=== PATIENT | male | born 1950 | race Caucasian/White ===

== ENCOUNTER 2018-06-12 16:25 | Inpatient (IN) | payer MEDICARE, MEDICAID ==
[~2018-06-12] VITALS: Ht 177.8 cm; Wt 111.6 kg
--- NOTE | ~2018-06-12 | DS ---
[place], [place] DISCHARGE SUMMARY [id number] #: [id number] ROOM: 310 DOCTOR: BILL BELL MD BIRTHDATE: [birth year] DOS: 06/16/2018 CHIEF COMPLAINT: "I can't stop these crying spells." HISTORY OF PRESENT ILLNESS: This is a 67-year-old white male who is a resident of [facility] in [place], [place]. The patient was to be admitted here to the U, but was needed to be medically cleared through the Emergency Room. When in the Emergency Room, they found him to have a UTI as well as an episode of SVT. He was subsequently admitted medically. While on the medical floor, he was still found to be very disjointed and fragmented with flight of ideas and extreme mood lability. He would cry 1 minute and laugh the next for apparently no reason. This bothered him to the point where he was feeling increasingly depressed and irritable. He was admitted to the U to rule out further organic factors and to attempt to stabilize on medication. SUMMARY OF HOSPITAL COURSE: The patient was admitted to the unit where his Aricept was discontinued in lieu of Exelon patch, which was started at 4.6 mg a day and brought up to 9.5 during his stay. This was augmented with Namenda 5 mg a day and further adjustment will be made when he returns back to [facility]. He was diagnosed with pseudobulbar affect. Due to the severity and inappropriateness of his emotionality, Nuedexta 20-10 once a day was started and then increased to twice a day with remarkable improvement. The mood lability and symptoms that were so problematic and were bothering him greatly dissipated. He was also given Depakote 500 mg 3 times a day. Because of some of the mood lability, his improvement with his moods was so substantial that he was able to be discharged back to [facility] on 06/16/2018. MENTAL STATUS AT DISCHARGE: The patient is alert and oriented with time gaps. Mood does seem to be strongly trending towards euthymia. Affect is much more appropriate. There is no maday or hypomania. There were no voice psychotic symptoms. Short-term memory had gaps, otherwise he is intact. DIAGNOSES UPON DISCHARGE: Intermittent explosive disorder, pseudobulbar affect. PLAN: All of his prescriptions have been printed and will be sent with him. I will be the treating psychiatrist upon his readmission to [facility] in [place]. At the time of discharge, he was psychiatrically stable. Of note as his RPR did come back positive, I will order an FTA antibody here and pass it on to follow up once he is returning to [facility]. [place], [place] DISCHARGE SUMMARY NAME: FELIPE CASTANEDA UNIT #: [id number] ROOM: 310 DOCTOR: BILL BELL MD BIRTHDATE: [birth year] BILL BELL MD CM:DISCHARG [phone] BILL BELL MD 06/16/18 1245 interface
--- NOTE | ~2018-06-12 | WRIGHTHP ---
[place], [place] PATIENT HISTORY AND PHYSICAL EXAM [id number] #: [id number] ROOM: 310 DOCTOR: BILL BELL MD BIRTHDATE: [birth year] DOS: 06/13/2018 INITIAL PSYCHIATRIC EVALUATION CHIEF COMPLAINT: "I can't stop these crying spells." HISTORY OF PRESENT ILLNESS: This is a 67-year-old white male, who is a resident of [facility] in [place], [place]. The patient was to be admitted here to the [facility] but when he was medically cleared through the Emergency Room, he was found to have a UTI and an episode of SVT, so he was admitted medically. While on the medical floor, he was still found to be very disjointed and fragmented with flight of ideas and extreme mood lability. He would cry 1 minute and laugh the next for no apparent reason. This bothered him to the point where he did report feeling increasingly depressed and irritable. He is admitted now to rule out further organic factors, to stabilize on medication, to engage in individual and mcfadden milieu activity, returning to the least restrictive environment when psychiatrically stable. PAST MEDICAL HISTORY: Remarkable for gait disturbance, Alzheimer's dementia, benign prostatic hyperplasia, hyperlipidemia, GERD, hypertension, obesity, atrial fibrillation, CVA, supraventricular tachycardia, diabetes, vitamin B12 deficiency. SOCIAL HISTORY: He is a former cigarette smoker. He does not drink alcohol or use illicit drugs. ALLERGIES: He lists allergies to ASPIRIN. STRENGTHS: Good verbal skills. WEAKNESSES: Cognitive decline, poor coping skills. MENTAL STATUS: He is alert and oriented with time gaps. Mood does seem to be uncontrollable. In the midst of me talking to him about relatively benign things, he burst into crying and could not stop. You can tell, he was distressed by the crying itself not distressed during the crying episode. This seemed totally out of his control. He nodded in approval when I said that this was what was happening. This has been bothersome and ongoing for some time now. There was no agitation or aggression. There were no overt auditory or visual hallucinations. No delusions, no paranoia. Short term memory does have gaps. DIAGNOSES: Intermittent explosive disorder, pseudobulbar affect. Rule out major depression, recurrent. PLAN: I am in the process and I will now discontinue the Aricept in lieu of Exelon as a better agent to treat his cognitive issues and improve ADL maintenance and behaviors. I will increase the Exelon patch to 9.5 mg a day. I have already started him on Nuedexta 20-10 once a day and I will increase this to twice a day. Vitamin D level is low at 25.6. However, we will augment with vitamin D 5000 International Units daily. His ammonia level is elevated, but I [place], [place] PATIENT HISTORY AND PHYSICAL EXAM NAME: FELIPE CASTANEDA UNIT #: [id number] ROOM: 310 DOCTOR: BILL BELL MD BIRTHDATE: [birth year] will recheck this later today to make certain that this is not a lab artifact. We will engage in individual and mcfadden milieu activity, returning to the least restrictive environment when psychiatrically stable. BILL BELL MD CM:HISPHYS:PATIENT HISTORY AND PHYSICAL EXAMINATION [phone] BILL BELL MD 06/13/18 1217 interface
--- NOTE | ~2018-06-12 | PR ---
[place], [place] PROGRESS NOTE [id number] #: [id number] ROOM: 310 DOCTOR: BILL BELL MD BIRTHDATE: [birth year] DOS: 06/14/2018 INTERVAL NOTE CHIEF COMPLAINT: "I think I'm better already, thank you doctor, thank you doctor." SUMMARY OF THE VISIT: The patient was interviewed as he was sitting, eating his breakfast. As I approached, he engaged in very spontaneous conversation. He commented on my shirt and the fact that it said [place] on it and we talked about people he had known who had gone to the [place] or to warm environments. During the entire conversation, he did not break down once and as we finished the conversation, he very quickly thanked me because he feels that his inappropriate excessive crying has already started to come under control. He does report tolerating the current medication regimen well and is hopeful that as he improves, he will be able to return back to [facility] in [place], [place]. MENTAL STATUS: He is alert and oriented with some mild time gaps. Mood does seem to be strongly trending towards euthymia. Affect is much more appropriate. There is no symptom suggestive of hypomania or maday and there are no gross psychotic symptoms. Short-term memory has only mild gaps, otherwise he is relatively fully intact. PLAN: I will recheck his valproic acid level in the morning tomorrow. The last level was mildly low at 45.2. I will continue his current psychotropic regimen, continue to engage in individual and mcfadden milieu activity with the ultimate plan to return to the least restrictive environment when psychiatrically stable. BILL BELL MD CM:PNTRANS [phone] BILL BELL MD 06/14/1806 interface
--- NOTE | ~2018-06-12 | PR ---
[place], [place] PROGRESS NOTE NAME: [id number] UN[facility] #: [id number] ROOM: 310 DOCTOR: BILL BELL MD BIRTHDATE: [birth year] DOS: 06/15/2018 INTERVAL NOTE CHIEF COMPLAINT: "I am feeling so much better. Thank you so much." SUMMARY OF THE VISIT: The patient was interviewed as he was wheeling up and down the hallway. He stopped and engaged readily in conversation, reporting that the episodes of this spontaneous emotionality have dissipated almost completely. He reports feeling so much better. He is sleeping better, eating better, and is much more positive about life and is anxious to return back to [place]. He convincingly denies medication side effects. MENTAL STATUS: He is alert and oriented to person, place and very approximate to time. Mood is strongly trending towards euthymia. Affect is much more appropriate. There is no maday or hypomania. There is no gross psychosis. Short term memory has only mild gaps, otherwise, he is fully intact. PLAN: His valproic acid level was therapeutic at 65.1, so I will maintain his current regimen. Maintain Nuedexta 20-10 b.i.d. Engage in individual and mcfadden milieu activity, returning then to the least restrictive environment when psychiatrically stable. BILL BELL MD CM:PNTRANS [phone] BILL BELL MD 06/15/18 1013 interface
[~2018-06-12 16:25] MED LIST: ARICEPT10 M1 PO; B12,B-12,B 12500 MC1 PO; CENTRUM SILVER1 EAC3 PO; DEPAKOTE DR500 MG PO; FINASTERIDE5 M1 PO; GUAIFENESIN600 MG PO; LOPRESSOR100 M1 PO; MELATONIN5 M6 PO; Meclizine25 MG PO; NORVASC10 MG PO; OMEPRAZOLE40 MG PO; TAMSULOSIN HCL0.4 MG PO; ZESTORETIC 20-1 EACH PO
[2018-06-12] MEDS ORDERED: RESTORIL15 MG PO (16:48)
[2018-06-12] MEDS ORDERED: METOPROLOL SUC100 M1 PO (17:04)
[2018-06-12 17:49] VITALS: BP 141/89
[2018-06-12 18:17] VITALS: BP 141/89
--- NOTE | 2018-06-12 18:31 | NUR ---
SPOKE WITH DR.A CROSS ADVISED OF MEDICAL MANAGEMENT CONSULT NEEDED, PER DR. TAY BOCANEGRA THE CONSULT UNDER . NO FURTHER ORDERS AT THIS TIME
--- NOTE | 2018-06-12 18:32 | NUR ---
FELIPE CASTANEDA a 67 year old M admitted via WHEELCHAIR from THE 5TH FLOOR as a voluntary BY POA admission. Arrived on unit at 1740 . ALLERGIES: ASPIRIN . Vital signs are: [id number] 141/89. The client signed the following forms with stated understanding: Authorization For The Release of Medical Information, Clothing List, Consent to Voluntary Admission and Hospitalization, Consent and Release Forms/Receipt of Rights, Acknowledgement of Advance Directive Information, Behavioral Health Consent Form, and Informed Consent of Medications. Admitted under the services of Dr. ARABELLA LEGER,[facility]. A search was conducted and hazardous articles were removed. Client was oriented to the unit. LUCIA ZURITA
--- NOTE | 2018-06-12 18:34 | NUR ---
SPOKE WITH ZIA MA AYT [phone] RE:PT ADMISSION AND VOLUNTARY BY POA STATUS.
[2018-06-12 19:48] VITALS: BP 141/89
--- NOTE | 2018-06-12 22:05 | NUR ---
P--AGGRESSION, DEPRESSION, MOOD SWINGS I---DISCUSSED HIS PAST HISTORY, REVIEWED MEDICATION, REINFORCED SUPPORT SYSTEM R--I HAVE HAD SUCH A BLESSED LIFE, I GET DEPRESSED WHEN I THINK ABOUT MY STROKE AND HOW IT CHANGED THINGS. I CAN'T WAIT TO TAKE MY DAUGHTER AND HER GIRLFRIEND TO [place]. I REALLY TRY TO BE NICE TO PEOPLE, THERE IS NO REASON TO BE MEAN. CAN I HAVE A SHOWER TONIGHT P--CLIENTS MOOD CHANGED QUICKLY FROM LAUGHING TO CRYING. CLIENT EAGER TO TALK AND STAFF WILL BE READILY AVAILABLE TO TALK AT ANY TIME
--- NOTE | 2018-06-12 22:55 | NUR ---
IMODIUM GIVEN PER ORDERS FOR MULTIPLE LIQUID STOOLS
--- NOTE | 2018-06-13 02:48 | NUR ---
24 HR chart check completed.
--- NOTE | 2018-06-13 05:49 | NUR ---
SLEPT BETTER AFTER DISRUPTIVE ROOMMATE REMOVED FROM ROOM SLET 5 BROKEN HOURS
[2018-06-13 06:53] LABS: BASO # 0.1 10*3/uL (0.0-0.1); BASO % 0.6 % (0.0-1.0); EOS # 0.2 10*3/uL (0.0-0.4); EOS % 2.4 % (1.0-4.0); HEMOGLOBIN 13.8 g/dl (14.0-18.0); LYMPH # 1.9 10*3/uL (1.3-4.4); LYMPH % 19.3 % (27.0-41.0); MEAN CELL VOLUME 89.8 fl (80.0-94.0); MEAN CORPUSCULAR HGB 28.2 pg (27.0-31.0); MEAN CORPUSCULAR HGB CONC 31.4 g/dl (33.0-37.0); MONO # 0.9 10*3/uL (0.1-1.0); MONO % 8.8 % (3.0-9.0); NEUT # 6.5 10*3/uL (2.3-7.9); NEUT % 67.7 % (47.0-73.0); PLATELET COUNT AUTOMATED 282 10*3/uL (130-400); RED CELL DISTRI WIDTH 14.6 % (0-14.5); WHITE BLOOD COUNT 9.6 10*3/uL (4.8-10.8)
[2018-06-13 07:05] LABS: ALBUMIN 3.1 gm/dl (3.1-4.5); ALKALINE PHOSPHATASE 63 U/L (45-117); BUN 17 mg/dl (7-24); CHLORIDE 105 mmol/L (98-107); CHOLESTEROL 175 mg/dL (<200); CREATININE 1.23 mg/dL (0.70-1.30); HDL CHOLESTEROL 32 mg/dl (40-60); LDL CHOLESTEROL 113 mg/dL (9-159); POTASSIUM 3.8 mmol/L (3.5-5.1); SGOT/AST 56 IU/L (3-35); SGPT/ALT 51 U/L (12-78); SODIUM 140 mmol/L (136-145); TOTAL PROTEIN 8.5 gm/dL (6.4-8.2); TRIGLYCERIDES 149 mg/dl (<150); VALPROIC ACID (DEPAKENE) 45.2 ug/ml (50-100); VLDL CHOLESTEROL 30 mg/dL (6-40)
[2018-06-13 07:51] LABS: VITAMIN D, 25-HYDROXY 25.6 ng/mL (30-100)
--- NOTE | 2018-06-13 07:53 | NUR ---
PT AWAKE, ALERT AND VERBAL, EATING BREAKFAST IN DINING ROOM WITH PEERS.
--- NOTE | 2018-06-13 08:00 | NUR ---
Treatment Plan meeting with Dr. Aidan RN and Landscape Architect And Planner. Plan for discharge next week. Pt. is LTC at [facility] and will return at discharge.
--- NOTE | 2018-06-13 08:00 | NUR ---
ON UNIT TO SEE PT THIS AM, UPDATE GIVEN.
[2018-06-13 08:41] VITALS: BP 149/85
--- NOTE | 2018-06-13 10:00 | NUR ---
Spoke with Antonietta [place] at facility and advised of plans to discharge patient next week. Clinical Updates faxed to [facility]. Attn: Antonietta.
--- NOTE | 2018-06-13 10:09 | NUR ---
psychosocal hx completed today
--- NOTE | 2018-06-13 11:00 | NUR ---
AND ON UNIT TO SEE PT.
--- NOTE | 2018-06-13 11:45 | NUR ---
Update Level 2 PASRR received. Pt is Ruled out and may return to Nursing Facility at discharge.
--- NOTE | 2018-06-13 13:14 | NUR ---
CALL PLACED TO [facility] TO CLARIFY VISITATION/PHONE CALL RESTRICTION. PER POA THERE ARE NO RESTRICTIONS ON WHO CAN CALL OR VISIT. INFORMATION REGARDING TREATMENT MAY BE RELEASED TO: [facility], SARI CASTANEDA AND DAVIN TENORIO. UPDATE GIVEN TO [facility].
--- NOTE | 2018-06-13 13:53 | NUR ---
PHYSICAL THERAPY Patient evaluated on 3, full evaluation to follow. Continue with PT as per plan of care with fall, unit three, knees buckle, mod (A) x 2 and acute debility precautions. Will require SNF. PAtient is high complexity via chart review, tests and evaluation: 90007. Thank you for this referral. Alisa Pierce,PT
--- NOTE | 2018-06-13 14:14 | NUR ---
P- LABILE MOOD, EPISODES OF INAPPROPRIATE LAUGHTER AND CRYING NOTED WHICH PT STATES ARE INVOLUNTARY. I- ORIENTATION, MOOD AND BEHAVIOR ASSESSED. ASSESSED PT FOR SI/HI, INTENT OR PLAN. ASSESSED PT FOR S/S HALLLUCINATIONS, PARANOIA AND/OR DELUSIONS. MEDICATIONS ADMINISTERED PER PHYSICIAN'S ORDERS. ASSISTANCE WITH ADL CARE PROVIDED NEEDED. ENCOURAGED PT TO ATTEND AND PARTICIPATE IN [facility] GROUPS AND ACTIVITIES. R- PT IS ALERT AND ORIENTED TO PERSON, PLACE, TIME AND SITUATION. RESPS EASY AND EVEN ON ROOM AIR. MOOD IS LABILE, AFFECT INAPPROPRIATE AT TIMES PT HAS PERIODS OF INAPPROPRIATE LAUGHTER AND CRYING WHICH PT STATES ARE INVOLUNTARY. PT STATES "I HAVE SOMETHING, I THINK IT'S CALL PSUEDO-BULB FROM MY STROKE". EDUCATION PROVIDED REGARDING PSEUDOBULBULAR AFFECT AND NEW MEDICATION NEUDEXTA PRESCRIBED BY TO ASSIST IN MANAGING THESE OUTBURSTS. PT VERBALIZED UNDERSTANDING. POA AWARE WELL AND VERBALIZED UNDERSTANDING AND AGREEMENT. PT DENIES SI/HI, INTENT OR PLAN. PT DENIES HALLUCINATIONS, NO RESPONSE TO INTERNAL STIMULI NOTED. NO PARANOIA OR DELUSIONS NOTED. PT IS CALM, PLEASANT AND COOPERATIVE. MEDICATION COMPLIANT WITHOUT DIFFICULTY. 1 ASSIST PROVIDED FOR ADL CARE. PT CONTINENT OF BOWEL AND BLADDER. P- PLAN TO CONTINUE CURRENT TREATMENT; CONTINUE TO MONITOR MOOD AND BEHAVIORS. PROVIDE APPROPRIATE REORIENTATION, REDIRECTION AND 1:1 NEEDED. CONTINUE TO ENCOURAGE MEDICATION COMPLIANCE WELL GROUP ATTENDANCE AND PARTICIPATION.
--- NOTE | 2018-06-13 15:21 | NUR ---
Messi was evaluated on behavioral health this date by occupational therapy. His affect was pleasant and less labile this date. Messi has decreased balance, decreased endurance, decreased strength, decreased coordination, and decreased sensation that limits his ability to complete ADL's and functional transfers independently. SNF is recommended when patient is D/C with continued occupational therapy. Jessica Adams OTR/L
[2018-06-13 20:00] VITALS: BP 113/74
--- NOTE | 2018-06-14 03:21 | NUR ---
TYLENOL GIVEN FOR C/O 5/10 HEADACHE.
--- NOTE | 2018-06-14 05:26 | NUR ---
APPEARS TYLENOL EFFECTIVE. 24 HR chart check completed.
--- NOTE | 2018-06-14 06:12 | NUR ---
SLEPT POOR LAST NIGHT. APPROX 3.5 HOURS BROKEN SLEEP. EVERY ALARM OR SOUND SEEMS TO HAVE AWAKENED HIM AND HE WOULD THEN CALL OUT. COMPLETE SHOWER WITH SHAVE, AND ORAL CARE.
[2018-06-14 08:29] VITALS: BP 130/77
--- NOTE | 2018-06-14 10:00 | NUR ---
ON UNIT TO SEE PT AT THIS TIME.
--- NOTE | 2018-06-14 11:46 | NUR ---
AM GROUP/EXERCISES/BINGO PT ATTENDED AND PARTICIPATEX DURING GROUP. PT TEARFUL WHNE TALKING ABOUT SOME PAST EXPERIENCES, PT EASILY DIRECTED BACK TO ACTIVITY. PT WILL CONTINUE TO ATTEND AND PARTICIPATE TO BEST OF ABILITY.
--- NOTE | 2018-06-14 16:07 | NUR ---
SPOKE TO PT'S MARIVEL GHOTRA, UPDATE GIVEN.
--- NOTE | 2018-06-14 16:09 | NUR ---
P- MOOD APPEARS STABLE WITH BROAD RANGE AFFECT. PT REPORTS HE IS FEELING BETTER AND HAS NOTICED A DECREASE IN THE FREQUENCY OF INAPPROPRIATE OUTBURSTS OF LAUGHTER/CRYING. I- ORIENTATION, MOOD AND BEHAVIOR ASSESSED. ASSESSED PT FOR SI/HI, INTENT OR PLAN. ASSESSED PT FOR S/S HALLLUCINATIONS, PARANOIA AND/OR DELUSIONS. MEDICATIONS ADMINISTERED PER PHYSICIAN'S ORDERS. ASSISTANCE WITH ADL CARE PROVIDED NEEDED. ENCOURAGED PT TO ATTEND AND PARTICIPATE IN [employer] GROUPS AND ACTIVITIES. R- PT IS ALERT AND ORIENTED TO PERSON, PLACE, TIME AND SITUATION. RESPS EASY AND EVEN ON ROOM AIR. MOOD APPEARS STABLE WITH BROAD RANGE AFFECT. PT STATES HE IS FEELING BETTER AND STATES HE HAS NOTICED HE IS EXPERIENCING FEWER OUTBURTS OF INAPPROPRIATE LAUGHTER AND/OR CRYING. PT DENIES SI/HI, INTENT OR PLAN. PT DENIES HALLUCINATIONS, NO RESPONSE TO INTERNAL STIMULI NOTED. NO PARANOIA OR DELUSIONS NOTED. PT IS CALM, PLEASANT AND COOPERATIVE. MEDICATION COMPLIANT WITHOUT DIFFICULTY. 1 ASSIST PROVIDED FOR ADL CARE. PT CONTINENT OF BOWEL AND BLADDER. P- PLAN TO CONTINUE CURRENT TREATMENT; CONTINUE TO MONITOR MOOD AND BEHAVIORS. PROVIDE APPROPRIATE REORIENTATION, REDIRECTION AND 1:1 NEEDED. CONTINUE TO ENCOURAGE MEDICATION COMPLIANCE WELL GROUP ATTENDANCE AND PARTICIPATION.
[2018-06-14 20:00] VITALS: BP 142/85
--- NOTE | 2018-06-14 23:42 | NUR ---
A&O X4. STABLE MOOD. NO ADVERSE MOODS OR BEHAVIORS NOTED. ORGANIZED AND GOAL DIRECTED. CALM/PARTICIPATING. INTERACTIVE WITH STAFF AND PEERS. NO HALLUCINATIONS OR DELUSIONS NOTED. NO SI/HI NOTED. PRN ROZEREM GIVEN FOR INSOMNIA AND EFFECTIVE AT THIS TIME. MEDICATION COMPLIANT WITHOUT DIFFICULTY. PLAN IS TO CONTINUE TO ENCOURAGE MEDICATION COMPLIANCE AND CONTINUE TO ENCOURAGE PT TO REMAIN INTERACTIVE WITH PEERS AND STAFF. SEE [facility] FLOWSHEET FOR SPECIFIC MONITORING.
--- NOTE | 2018-06-15 05:18 | NUR ---
24 HR chart check completed.
--- NOTE | 2018-06-15 05:21 | NUR ---
PT SLEPT APPROXIMATELY 7 HOURS THIS SHIFT. Q15 MINUTE SAFETY CHECKS MAINTAINED.
[2018-06-15 07:37] VITALS: BP 145/81
--- NOTE | 2018-06-15 07:38 | NUR ---
PT AWAKE, ALERT AND VERBAL, PLEASANT, AWAITING BREAKFAST IN DINING ROOM WITH PEERS.
--- NOTE | 2018-06-15 08:00 | NUR ---
ON UNIT TO SEE PT AT THIS TIME, UPDATE GIVEN.
--- NOTE | 2018-06-15 10:21 | NUR ---
ON UNIT TO SEE PT AT THIS TIME.
--- NOTE | 2018-06-15 11:43 | NUR ---
P- MOOD APPEARS STABLE WITH BROAD RANGE AFFECT. PT REPORTS HE IS FEELING BETTER AND IS LOOKING FORWARD TO BEING DISCHARGED. LESS FREQUENT OUTBURSTS OF INAPPROPRIATE CRYING AND LAUGHING NOTED BY STAFF. I- ORIENTATION, MOOD AND BEHAVIOR ASSESSED. ASSESSED PT FOR SI/HI, INTENT OR PLAN. ASSESSED PT FOR S/S HALLLUCINATIONS, PARANOIA AND/OR DELUSIONS. MEDICATIONS ADMINISTERED PER PHYSICIAN'S ORDERS. ASSISTANCE WITH ADL CARE PROVIDED NEEDED. ENCOURAGED PT TO ATTEND AND PARTICIPATE IN [employer] GROUPS AND ACTIVITIES. R- PT IS ALERT AND ORIENTED TO PERSON, PLACE, TIME AND SITUATION. RESPS EASY AND EVEN ON ROOM AIR. MOOD APPEARS STABLE WITH BROAD RANGE AFFECT. SPEECH IS WNL AND COHERENT, ABLE TO MAKE NEEDS KNOWN WITHOUT DIFFICULTY. PT STATES HE IS FEELING BETTER. LESS FREQUENT OUTBURSTS OF INAPPROPRIATE LAUGHING AND CRYING NOTED BY STAFF. PT STATES HE HAS NOTICED THESE OUTBURTS GETTING BETTER AND HE IS READY TO GO BACK HOME SOON. PT DENIES SI/HI, INTENT OR PLAN. PT DENIES HALLUCINATIONS, NO RESPONSE TO INTERNAL STIMULI NOTED. NO PARANOIA OR DELUSIONS NOTED. PT IS CALM, PLEASANT AND COOPERATIVE. POSITIVE INTERACTIONS NOTED WITH BOTH STAFF AND PEERS. PT IS MEDICATION COMPLIANT WITHOUT DIFFICULTY. 1 ASSIST PROVIDED FOR ADL CARE, PT SHOWERED AND SHAVED THIS MORNING WITH STAFF ASSIST X1. PT CONTINENT OF BOWEL AND BLADDER. P- PLAN TO CONTINUE CURRENT TREATMENT; CONTINUE TO MONITOR MOOD AND BEHAVIORS. PROVIDE APPROPRIATE REORIENTATION, REDIRECTION AND 1:1 NEEDED. CONTINUE TO ENCOURAGE MEDICATION COMPLIANCE WELL GROUP ATTENDANCE AND PARTICIPATION.
--- NOTE | 2018-06-15 14:50 | NUR ---
SHIFT CHART CHECK COMPLETED.
--- NOTE | 2018-06-15 16:02 | NUR ---
PM GROUP/EXERCISES/MOVIE PT ATTENDED AND PARTICIPATED DURING GROUP. PT ON TASK AND TALKATIVE WITH PEERS. PT DID BECOME AGITATED BY ANOTHER PT TALKING TOO MUCH DURING GROUP WHILE WATCHING A MOVIE. PT STATED "JUST BE QUIET". THIS STAFF REMOVED DISTRACTING PEER AND PT BACK ON TRACK. PT WILL CONTINUE TO ATTEND AND PRATICIPATE IN FUTURE GROUP SESSIONS.
[2018-06-15 20:00] VITALS: BP 144/79
--- NOTE | 2018-06-15 21:30 | NUR ---
A&O X4. STABLE MOOD. NO ADVERSE MOODS OR BEHAVIORS NOTED. ORGANIZED AND GOAL DIRECTED. CALM/PARTICIPATING. INTERACTIVE WITH STAFF AND PEERS. NO HALLUCINATIONS OR DELUSIONS NOTED. NO SI/HI NOTED. PRN ROZEREM GIVEN FOR INSOMNIA. MEDICATION COMPLIANT WITHOUT DIFFICULTY. PLAN IS TO CONTINUE TO ENCOURAGE MEDICATION COMPLIANCE AND CONTINUE TO ENCOURAGE PT TO REMAIN INTERACTIVE WITH PEERS AND STAFF. SEE [facility] FLOWSHEET FOR SPECIFIC MONITORING.
--- NOTE | 2018-06-16 05:30 | NUR ---
PT SLEPT APPROXIMATELY 7 HOURS THIS SHIFT.
--- NOTE | 2018-06-16 05:32 | NUR ---
24 HR chart check completed.
[2018-06-16 07:24] VITALS: BP 139/67
--- NOTE | 2018-06-16 07:25 | NUR ---
OT NOTE Pt was seen this A.M. 1:1 for 25 minute OT session with PAROLE DIRECTOR and nursing present for observation only. Upon arrival pt was sitting upright in w/c in the dining room and identified by name and . Pt had no complaints at this time. Requested for pt to soheila his sock while sitting in w/c and pt had inital attempt of bending at the waist, resulting in modA due to F- sitting balance. Educated pt on compensatory technique of bringing his leg over his knee and pt was able to then soheila socks with SBA. Pt was taken into his bedroom where he completed sit to stand from chair level with modA and use of w/w for UE support. Funtional mobility completed into the bathroom with Tova and use of w/w. There pt stood sink side while washing his hands and face with Tova while staniding without UE support and CGA while standing with UE support. Pt was able to tolerate aprox 4 minutes before sitting due to fatigue and L knee buckle. Pt completed LUE towel exercises over all planes of motion for 1 X 10 to increase UE strength needed for increased I in self care tasks and functional transfers. Throughout session pt had one episode of labile affect. Pt was left sitting upright in the w/c with body alarm on for safety in the dining room under [facility] staff supervision. Continue with POC as able. DIGNA Quiñonez/Robb
--- NOTE | 2018-06-16 07:52 | NUR ---
PHYSICAL THERAPY informed consent given, pt identified by name and . pt presented sitting in w/c, STS and stand to sit x2 CGA. Walked 20ft FWW Tova step to gait pattern w/c follow, pt presented L knee buckle, edu to lock knee out, and to push weight w/ BUE through FWW to avoid knee buckle. During walk, pt c/o lightheadedness, edu to reorient self before walking to avoid fall. Seated BLE ther ex manual resistance x10:LAQ, hip ABD, marches, toe ups. Ended treatment pt sitting in w/c, chair, body alarm on, in activity room. SAWYER present for observation only throughout treatment, treatment time 24min. Will continue per POC to improve functional mobility. Zane Reese, NAMED ACCOUNT EXECUTIVE
--- NOTE | 2018-06-16 08:37 | NUR ---
SPOKE WITH DR. SIMPSON AT [phone] RE:PT DISCHARGE FOR TODAY.
--- NOTE | 2018-06-16 08:43 | NUR ---
LAB CALLED, ADVISED THAT PT HAS A POSITIVE REACTIVE RPR. WILL NOTIFY
--- NOTE | 2018-06-16 08:45 | NUR ---
ADVISED DR. CONNELLY AT [phone] RE; PT POSITIVE RPR. NO FURTHER ORDERS AT THIS TIME.
[2018-06-16] MEDS ORDERED: RIVASTIGMINE1 EAC1 T (08:46)
[2018-06-16] MEDS ORDERED: DIVALPROEX SOD125 M1 PO (08:46)
[2018-06-16] MEDS ORDERED: NEUDEXT PO (08:46)
[2018-06-16] MEDS ORDERED: ROZEREM8 MG PO (08:46)
[2018-06-16] MEDS ORDERED: NAMENDA-5 PO (08:46)
--- NOTE | 2018-06-16 09:43 | NUR ---
Treatment Plan meeting with Dr. Bermudez, RN, AT, and [facility]. Plan for discharge today. Pt. to return to [facility]. Notified Antonietta [place] admissions at [facility] and also spoke with SREEKANTH Arcos and notified of plans to discharge today.
--- NOTE | 2018-06-16 10:40 | NUR ---
PT ALERT TO PERSON, PLACE, TIME AND SITUATION. PT MED COMPLIANT WITHOUT DIFFIULTY, MED EDUCATION PROVIDED. PT CALM, MOOD IS STABLE. PT GOAL DIRECTED TOWARDS DISCHARGE. NO HALLUCINATIONS OR DELUSIONS NOTED. PT DENIES ANY SUICIDAL/HOMICIDAL THOUGHTS. PT UP TO WHEELCHAIR D/T UNSTEADY GAIT AND INABILITY TO AMBULATE INDEPENDENTLYT, REQUIRES 1X STAFF ASSIST FOR TRANSFERS. PT CONTINENT OF BOWEL AND BLADDER, WITH EPISODES OF INCONTINENCE NOTED, CARE PROVIDED NEEDED. PLAN IS TO PREPARE FOR DISCHARGE LATER TODAY VIA [facility].
--- NOTE | 2018-06-16 11:33 | NUR ---
AM GROUP/EXERCISE AND [place] [employer] PT ATTENDED AND PARTICIPATED LIMITEDLY IN GROUP. PT DID A FEW OF THE EXERCISES AND WORKED ON EGGS BUT WOULD DOZE OFF OCCASIONALLY. PT WOULD SING ALONG WITH THE MUSIC ALSO. PT IS SET TO BE DISCHARGED FROM THE UNIT TODAY.
--- NOTE | 2018-06-16 11:37 | NUR ---
ON UNIT TO ASSESS PT.
--- NOTE | 2018-06-16 13:30 | NUR ---
UPDATED PT POA ON POSITIVE RPR AND PT BEING SENT BACK TO NURSING FACILITY WITH PRESCRIPTION.
--- NOTE | 2018-06-16 13:34 | NUR ---
NURSE TO NURSE REPORT GIVEN TO DANNY AT [facility] [place]
--- NOTE | 2018-06-16 15:17 | NUR ---
PT DISCAHRGED TO [place] VIA [facility].
--- NOTE | 2018-06-17 07:35 | NUR ---
PHYSICAL THERAPY CO-SIGN I approve of the Phyical Therapy notes written above. CHRIS ODEN PT
--- NOTE | 2018-06-17 08:02 | NUR ---
OCCUPATIONAL THERAPY CO-SIGN I approve of the Occupational Therapy notes written above. DEBORAH RUIZ OTR/[facility]
--- NOTE | 2018-06-17 18:17 | NUR ---
WYATT FROM [facility] – [place] CALLED RE: PT LABS FROM YESTERDAY, THIS NURSE ADVISUED THAT PT LABS ARE STILL PENDING.
--- NOTE | 2018-07-11 09:30 | NUR ---
LAB RESULTS PROVIDED TO EANREST HOWELL.
== END 2018-06-16 15:20 | disposition other institution (70) | DRG 883 ==
LOC: 3N 16:25
PROVIDERS: ADMIT Psychiatry & Neurology Psychiatry
DX: F63.81 Intermittent explosive disorder (principal); F02.81 Dementia in other diseases classified elsewhere, unspecified severity, with behavioral disturbance; G30.9 Alzheimer's disease, unspecified; R26.2 Difficulty in walking, not elsewhere classified; F48.2 Pseudobulbar affect; N40.0 Benign prostatic hyperplasia without lower urinary tract symptoms; F39 Unspecified mood [affective] disorder; I10 Essential (primary) hypertension; K21.9 Gastro-esophageal reflux disease without esophagitis; E53.8 Deficiency of other specified B group vitamins; I48.0 Paroxysmal atrial fibrillation; E66.01 Morbid (severe) obesity due to excess calories; E11.9 Type 2 diabetes mellitus without complications; Z88.6 Allergy status to analgesic agent; Z86.73 Personal history of transient ischemic attack (TIA), and cerebral infarction without residual deficits; Z87.440 Personal history of urinary (tract) infections; I25.2 Old myocardial infarction; Z87.891 Personal history of nicotine dependence; Z82.3 Family history of stroke; Z82.49 Family history of ischemic heart disease and other diseases of the circulatory system; Z80.3 Family history of malignant neoplasm of breast; Z84.89 Family history of other specified conditions; Z79.899 Other long term (current) drug therapy; Z68.35 Body mass index [BMI] 35.0-35.9, adult